=== PATIENT | male | born 1975 | race African-American/Black ===

== ENCOUNTER 2017-07-08 19:48 | Inpatient (IN) | payer OTHER ==
[~2017-07-08] VITALS: Ht 190.5 cm; Wt 85.7 kg
[~2017-07-08 19:48] MED LIST: HYDROCORTISONE30 G9 RECTAL
[2017-07-08 19:51] VITALS: BP 147/125
[2017-07-08 20:43] LABS: HEMATOCRIT 28.9 % (42.0-52.0); MCH 24.6 pg (26.0-34.0); MCHC 31.2 g/dL (28.0-37.0); MCV 78.8 fL (80.0-100.0); PLATELET COUNT 280 thou/uL (150-400); RBC 3.67 mil/uL (4.50-6.00); RDW 23.7 % (10.5-14.5); WBC 13.8 thou/uL (4.0-11.0)
[2017-07-08 20:45] LABS: MANUAL DIFF YES
[2017-07-08 20:50] LABS: ANION GAP 7 mmol/L (7-16); BUN 13 mg/dL (7-18); CALCIUM 8.8 mg/dL (8.5-10.1); CHLORIDE 107 mmol/L (98-107); CO2 29 mmol/L (21-32); CREATININE 0.9 mg/dL (0.7-1.3); GLUCOSE 106 mg/dL (74-106); POTASSIUM 3.3 mmol/L (3.5-5.1); SODIUM 143 mmol/L (136-145)
[2017-07-08 20:56] LABS: ALBUMIN 3.1 g/dL (3.4-5.0); ALKALINE PHOSPHATASE 155 U/L (46-116); DIRECT BILIRUBIN < 0.1 mg/dL (<0.1-0.3); SGOT 8 U/L (15-37); SGPT 15 U/L (30-65); TOTAL BILIRUBIN 0.3 mg/dL (<0.1-1.0); TOTAL PROTEIN 7.4 g/dL (6.4-8.2)
[2017-07-08 21:09] LABS: ABSOLUTE NEUTROPHILS 13.4 thou/uL (1.4-8.2); ANISOCYTOSIS 2+; HYPOCHROMASIA 2+; MICROCYTES 2+; POLYCHROMASIA OCCASIONAL; TOTAL CELL COUNT 100
[2017-07-08] MEDS ORDERED: OXYCONTIN20 M1 PO (21:34)
[2017-07-08] MEDS ORDERED: OXYCONTIN10 M1 PO (21:35)
[2017-07-08 23:15] VITALS: BP 145/98
[2017-07-08 23:23] VITALS: BP 137/77
[2017-07-09 04:31] LABS: HEMATOCRIT 27.4 % (42.0-52.0); HEMOGLOBIN 8.6 gm/dL (14.0-18.0); MCH 24.9 pg (26.0-34.0); MCHC 31.4 g/dL (28.0-37.0); MCV 79.3 fL (80.0-100.0); RBC 3.45 mil/uL (4.50-6.00); RDW 23.6 % (10.5-14.5); WBC 11.3 thou/uL (4.0-11.0)
[2017-07-09 04:40] LABS: CALCIUM 8.4 mg/dL (8.5-10.1); CREATININE 0.9 mg/dL (0.7-1.3); POTASSIUM 3.8 mmol/L (3.5-5.1)
[2017-07-09 06:07] VITALS: BP 150/91
[2017-07-09 07:38] VITALS: BP 144/93
[2017-07-09 10:47] LABS: URINE BILIRUBIN NEGATIVE (Negative); URINE BLOOD 3+ (Negative); URINE COLOR YELLOW; URINE GLUCOSE-RANDOM* NEGATIVE (Negative); URINE KETONES NEGATIVE (Negative); URINE NITRITE POSITIVE (Negative); URINE PROTEIN (DIPSTICK) 1+ (Negative); URINE UROBILINOGEN 0.2 E.U./dl (0.2-1.0)
[2017-07-09 10:57] LABS: CASTS None Seen /LPF (None Seen); CRYSTALS None Seen /LPF (None Seen); SQUAMOUS None Seen /LPF (0-3); URINE WBC >25 Many /HPF (0-5); WBC CLUMPS Many (None Seen)
[2017-07-09 15:53] VITALS: BP 142/100
[2017-07-09 20:30] VITALS: BP 147/101
[2017-07-10 05:00] VITALS: BP 126/82
[2017-07-10 07:45] VITALS: BP 146/97
[2017-07-10 15:27] VITALS: BP 146/101
[2017-07-10 20:00] VITALS: BP 146/64
[2017-07-11 04:00] VITALS: BP 139/78
[2017-07-11 07:58] VITALS: BP 150/102
[2017-07-11 15:15] VITALS: BP 136/99
[2017-07-11 19:10] VITALS: BP 136/96
[2017-07-12 04:41] VITALS: BP 138/95
[2017-07-12 07:04] VITALS: BP 143/100
[2017-07-12] MEDS ORDERED: AMLODIPINE BESYL5 M1 PO (08:55)
[2017-07-12 09:31] VITALS: BP 143/100
== END 2017-07-12 10:33 | disposition home or self-care (01) | DRG 374 ==
LOC: ER 19:48 → 4E 23:02
PROVIDERS: Emergency Medicine; Nurse Practitioner
DX: C20 Malignant neoplasm of rectum (principal); E43 Unspecified severe protein-calorie malnutrition; Z93.3 Colostomy status; Z96.0 Presence of urogenital implants; F17.210 Nicotine dependence, cigarettes, uncomplicated; Z53.29 Procedure and treatment not carried out because of patient's decision for other reasons; R31.9 Hematuria, unspecified; I10 Essential (primary) hypertension; G89.29 Other chronic pain; E87.6 Hypokalemia; Z79.899 Other long term (current) drug therapy; Z68.23 Body mass index [BMI] 23.0-23.9, adult; Z91.041 Radiographic dye allergy status
CPT/HCPCS: 10084

== ENCOUNTER 2017-07-13 20:08 | Inpatient (IN) | payer OTHER ==
[~2017-07-13] VITALS: Ht 190.5 cm; Wt 72.6 kg
[~2017-07-13 20:08] MED LIST changes: +AMLODIPINE BESYL5 M1 PO; +OXYCONTIN10 M1 PO; +OXYCONTIN20 M1 PO
[2017-07-13 20:09] VITALS: BP 110/76
[2017-07-13 21:11] LABS: ABSOLUTE NEUTROPHILS 7.7 thou/uL (1.4-8.2); HEMATOCRIT 34.8 % (42.0-52.0); HEMOGLOBIN 10.9 gm/dL (14.0-18.0); LYMPHOCYTES 10.1 % (24.0-44.0); MANUAL DIFF NO; MCH 24.8 pg (26.0-34.0); MCHC 31.4 g/dL (28.0-37.0); MCV 78.9 fL (80.0-100.0); MONOCYTES 10.7 % (1.0-8.0); PLATELET COUNT 376 thou/uL (150-400); POLYS 74.2 % (36.0-66.0); RDW 23.8 % (10.5-14.5); WBC 10.3 thou/uL (4.0-11.0)
[2017-07-13 21:23] LABS: CALCIUM 9.3 mg/dL (8.5-10.1); CREATININE 1.2 mg/dL (0.7-1.3)
[2017-07-13 21:29] LABS: ALBUMIN 3.1 g/dL (3.4-5.0); TOTAL BILIRUBIN 0.2 mg/dL (<0.1-1.0); TOTAL PROTEIN 7.9 g/dL (6.4-8.2)
[2017-07-13 22:12] LABS: URINE BILIRUBIN NEGATIVE (Negative); URINE BLOOD 3+ (Negative); URINE COLOR RED; URINE GLUCOSE-RANDOM* NEGATIVE (Negative); URINE KETONES NEGATIVE (Negative); URINE PROTEIN (DIPSTICK) 2+ (Negative); URINE UROBILINOGEN 0.2 E.U./dl (0.2-1.0)
[2017-07-13 22:13] LABS: URINE LEUKOCYTES-REFLEX 3+ (Negative)
[2017-07-13 22:23] LABS: CASTS None Seen /LPF (None Seen); CRYSTALS None Seen /LPF (None Seen); SQUAMOUS None Seen /LPF (0-3); URINE RBC >20 Many /HPF (0-2); URINE WBC-REFLEX >25 Many /HPF (0-5)
[2017-07-13 23:50] VITALS: BP 139/90
[2017-07-14 00:02] VITALS: BP 112/60
[2017-07-14 00:45] VITALS: BP 139/90
[2017-07-14 04:50] VITALS: BP 133/88
[2017-07-14 07:12] LABS: HEMATOCRIT 29.6 % (42.0-52.0); HEMOGLOBIN 9.3 gm/dL (14.0-18.0); MCH 24.9 pg (26.0-34.0); MCHC 31.2 g/dL (28.0-37.0); MCV 79.6 fL (80.0-100.0); RBC 3.72 mil/uL (4.50-6.00); RDW 23.2 % (10.5-14.5); WBC 10.6 thou/uL (4.0-11.0)
[2017-07-14 07:19] LABS: CALCIUM 8.7 mg/dL (8.5-10.1); CREATININE 0.9 mg/dL (0.7-1.3); POTASSIUM 4.6 mmol/L (3.5-5.1)
[2017-07-14 08:13] VITALS: BP 131/87
[2017-07-14 15:50] VITALS: BP 138/99
[2017-07-14 20:30] VITALS: BP 157/90
[2017-07-15 08:00] VITALS: BP 139/93
[2017-07-15 15:46] VITALS: BP 158/101
[2017-07-15 19:25] VITALS: BP 144/96
[2017-07-16 04:40] VITALS: BP 139/89
[2017-07-16 07:20] VITALS: BP 144/98
== END 2017-07-16 12:20 | disposition left against medical advice (07) | DRG 690 ==
LOC: ER 20:08 → EROBS 23:20 → 4N 23:20
PROVIDERS: Emergency Medicine; Nurse Practitioner Family
DX: N39.0 Urinary tract infection, site not specified (principal); D50.0 Iron deficiency anemia secondary to blood loss (chronic); Z85.038 Personal history of other malignant neoplasm of large intestine; Z85.51 Personal history of malignant neoplasm of bladder; Z91.041 Radiographic dye allergy status
CPT/HCPCS: 10091

== ENCOUNTER 2017-07-19 20:50 | Emergency (ER) | payer OTHER ==
[~2017-07-19] VITALS: Ht 190.5 cm; Wt 72.6 kg
[2017-07-19 21:19] LABS: URINE BILIRUBIN NEGATIVE (Negative); URINE BLOOD 3+ (Negative); URINE COLOR BROWNISH; URINE GLUCOSE-RANDOM* NEGATIVE (Negative); URINE KETONES NEGATIVE (Negative); URINE LEUKOCYTES-REFLEX 3+ (Negative); URINE PROTEIN (DIPSTICK) 2+ (Negative); URINE SPECIFIC GRAVITY 1.025 (1.003-1.035); URINE UROBILINOGEN 0.2 E.U./dl (0.2-1.0)
[2017-07-19 21:22] LABS: CASTS None Seen /LPF (None Seen); CRYSTALS None Seen /LPF (None Seen); SQUAMOUS None Seen /LPF (0-3); URINE RBC >20 Many /HPF (0-2); URINE WBC-REFLEX >25 Many /HPF (0-5)
[2017-07-19 21:31] LABS: HEMATOCRIT 32.1 % (42.0-52.0); HEMOGLOBIN 10.3 gm/dL (14.0-18.0); MANUAL DIFF YES; MCH 25.3 pg (26.0-34.0); MCV 78.9 fL (80.0-100.0); PLATELET COUNT 385 thou/uL (150-400); RBC 4.07 mil/uL (4.50-6.00)
[2017-07-19 21:37] LABS: CALCIUM 9.1 mg/dL (8.5-10.1); CREATININE 1.1 mg/dL (0.7-1.3); POTASSIUM 3.8 mmol/L (3.5-5.1)
[2017-07-19 21:43] LABS: ALBUMIN 3.2 g/dL (3.4-5.0); TOTAL BILIRUBIN 0.1 mg/dL (<0.1-1.0); TOTAL PROTEIN 8.2 g/dL (6.4-8.2)
[2017-07-19] MEDS ORDERED: OXYCODONE HCL 55 MG PO (21:59)
[2017-07-19] MEDS ORDERED: OXYCONTIN10 M1 PO (21:59)
[2017-07-19 22:02] LABS: ABSOLUTE NEUTROPHILS 5.1 thou/uL (1.4-8.2); HYPOCHROMASIA SLIGHT; TOTAL CELL COUNT 100
[2017-07-19 22:03] LABS: ANISOCYTOSIS 3+; MICROCYTES 2+
[2017-07-19] MEDS ORDERED: BACTRIM DS TAB1 EACH PO (22:06)
[2017-07-19] MEDS ORDERED: MACROBID 100 M100 M1 PO (22:06)
[2017-07-19] MEDS ORDERED: OXYCODONE HCL10 MG PO ×2 (22:06→22:12)
[2017-07-19] MEDS ORDERED: OXYCONTIN40 MG PO (22:06)
== END 2017-07-19 23:15 | disposition home or self-care (01) ==
LOC: ER 20:50
PROVIDERS: Emergency Medicine
DX: Z76.0 Encounter for issue of repeat prescription (principal); N39.0 Urinary tract infection, site not specified; Q62.10 Congenital occlusion of ureter, unspecified; Z85.038 Personal history of other malignant neoplasm of large intestine; Z91.041 Radiographic dye allergy status